=== PATIENT | male | born 1970 | race Caucasian/White ===

== ENCOUNTER 2022-05-31 06:41 | Emergency (ER) | payer BC ==
[~2022-05-31] VITALS: Ht 172.7 cm; Wt 86.2 kg
[2022-05-31 06:49] VITALS: BP_SYST 138
--- NOTE | 2022-05-31 06:54 | NUR ---
PT PLACED IN BED [address] YU AT BEDSIDE.
[2022-05-31] MEDS ORDERED: MORPHINE 4 MG INJ. 4 MG/ML VIAL IM ONE (07:15)
[2022-05-31] MEDS ORDERED: KETOROLAC TROMETHAMINE 60 MG/2 ML VIAL IM ONE (07:15)
[2022-05-31] MEDS ORDERED: GABA-331 PO (07:16)
[2022-05-31] MEDS ORDERED: HYDR-3919 PO (07:16)
[2022-05-31] MEDS ORDERED: ACYC-133 PO (07:19)
--- NOTE | 2022-05-31 07:20 | NUR ---
HANDOFF REPORT GIVEN TO HARISH LAY TO ASSUME CARE OF PT.
--- NOTE | 2022-05-31 07:31 | NUR ---
PER MD ORDER, PT WAS MEDICATED WITH TORADOL AND MORPHINE FOR THE PAIN.
[2022-05-31 07:51] LABS: BILIRUBIN,URINE NEGATIVE (NEGATIVE); CLARITY/URINE CLEAR (CLEAR); COLOR,URINE YELLOW (YELLOW); GLUCOSE,URINE NEGATIVE (NEGATIVE); KETONES,URINE 1+ (NEGATIVE); LEUKOCYTE ESTERASE ,URINE NEGATIVE (NEGATIVE); NITRITE, URINE NEGATIVE (NEGATIVE); PROTEIN URINE 1+ (NEGATIVE); UROBILINOGEN,URINE 0.2 (0.2-1.0)
[2022-05-31 07:57] LABS: BLOOD, URINE TRACE (NEGATIVE)
[2022-05-31 08:23] LABS: BACTERIA,URINE RARE /HPF (None Seen); MUCUS,URINE 3+ /LPF (None Seen); WBC,URINE 0-3 /HPF (0-3)
--- NOTE | 2022-05-31 09:09 | NUR ---
PT WAS RE-ASSESSED BY ED MD THEN D/C'D HOME. Patient given written and verbal discharge instructions and verbalizes understanding. ER MD discussed with patient the results and treatment provided. Patient in stable condition. ID arm band removed. IV catheter removed intact and dressing applied, no active bleeding. Patient educated on pain management and to follow up with PMD. Pain Scale 1. Opportunity for questions provided and answered. Medication side effect fact sheet provided.
[2022-05-31 09:11] VITALS: BP_SYST 134
== END 2022-05-31 09:09 | disposition home or self-care (01) ==
LOC: SED 06:41
DX: B02.9 Zoster without complications (principal); K62.89 Other specified diseases of anus and rectum; R50.9 Fever, unspecified; R51.9 Headache, unspecified; Z79.899 Other long term (current) drug therapy
CPT/HCPCS: 99284; 81000; 96372; J1885; J2270